=== PATIENT | male | born 1995 | race Caucasian/White ===

== ENCOUNTER 2017-08-12 12:55 | Emergency (ER) | payer MEDICAID, OTHER | END 2017-08-12 13:42 | disposition home or self-care (01) | LOC: ER 12:55 | DX: H10.89 Other conjunctivitis (principal); F31.9 Bipolar disorder, unspecified; F84.5 Asperger's syndrome; F90.9 Attention-deficit hyperactivity disorder, unspecified type; F12.10 Cannabis abuse, uncomplicated | CPT/HCPCS: 99283 ==